=== PATIENT | female | born 1985 | race Caucasian/White ===

== ENCOUNTER 2021-12-08 17:11 | Outpatient (CLI) | payer OTHER, SELFPAY ==
[2021-12-08 20:07] LABS: Cholesterol* 204 mg/dL (90-199)
[2021-12-08 20:08] LABS: Glucose* 94 mg/dL (60-115); HDL Cholesterol* 44 mg/dL (>=50); LDL Cholesterol Calculated 134 mg/dL (<100); Triglycerides* 131 mg/dL (40-149)
== END 2021-12-08 17:12 | disposition home or self-care (01) ==
PROVIDERS: PCP Family Medicine; Visit Provider Physician Assistant
DX: Z01.419 Encounter for gynecological examination (general) (routine) without abnormal findings (principal); R10.9 Unspecified abdominal pain; Z13.6 Encounter for screening for cardiovascular disorders; Z11.3 Encounter for screening for infections with a predominantly sexual mode of transmission; Z13.1 Encounter for screening for diabetes mellitus
CPT/HCPCS: 80061; 82947; 87624; 88175

== ENCOUNTER 2022-12-23 16:48 | Emergency (ER) | payer OTHER, SELFPAY ==
[2022-12-23] VITALS (27 sets, daily range): BP systolic 100–126; BP diastolic 70–92; PULSE 64–95; RESP 18–24; TEMP 36.6–36.7; O2SAT 91–100; BMI 32.9
--- NOTE | 2022-12-23 17:24 | ED.GENADULT ---
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 Day at [facility], last week. The procedure was complicated by DVT that developed in her right lower extremity. This was not apparently diagnosed on ultrasound in the [facility] on Tuesday. Apparently there was a large clot burden or proximal clot involving the right femoral or iliac vein. She was taken for a venogram and thrombectomy on Tuesday. She still has the dressing in place on the right IJ (the site I used for approach). Apparently her clot retrieval was successful. She was discharged home. She is still on her prophylactic Lovenox. She was given oxycodone for pain. She has had a lot of nausea for the past couple of days has not been able to eat or drink much fluid. She is having ongoing pain located in her right groin. Today she also developed new severe pain involving her left calf. This afternoon she developed some pleuritic chest pain. She was brought here after her family called the ambulance. In route per EMS she received Dilaudid 2 mg and fentanyl 100 mcg. She was apparently having tremendous bilateral lower extremity pain, making a double call for them to extricate her from the home. Now that she is here she is feeling nauseous. She is still having some pain in her legs but declined further pain meds. Related Data Home Medications Medication Instructions Recorded Confirmed ondansetron HCl 4 mg tablet 4 mg PO Q6H PRN 02/12/22 12/23/22 rimegepant 75 mg disintegrating 75 mg PO Q OTHER DAY 02/12/22 02/12/22 tablet (Nurtec ODT) tramadol 50 mg tablet 50 mg PO PRN pain 02/12/22 02/12/22 baclofen 5 mg tablet mg PO 12/23/22 cannabis 12/23/22 cephalexin 500 mg capsule 500 mg PO BID 12/23/22 12/23/22 enoxaparin 80 mg/0.8 mL 1 subcut Q12H 12/23/22 subcutaneous syringe hydrocodone 5 mg-acetaminophen 325 1 tab PO Q6-8H PRN pain 12/23/22 12/23/22 mg tablet methocarbamol 750 mg tablet 750 mg PO 3XD PRN pain 12/23/22 12/23/22 pregabalin 25 mg capsule mg PO 12/23/22 Allergies Allergy/AdvReac Type Severity Reaction Status Date / Time codeine Allergy Severe SOB, heart Verified 12/23/22 17:12 races warfarin Allergy Intermediate Trouble Verified 12/23/22 17:12 breathing Ketorolac tromethamine Allergy Intermediate Anxious Uncoded 02/12/22 12:39 [facility] Medical History (Updated 12/23/22 @ 22:04 by Oni Hyman MD) Familial multiple factor deficiency syndrome, type IV ?D68.8 - Other specified coagulation defects (ICD-10) Non-specific colitis ?K52.9 - Noninfective gastroenteritis and colitis, unspecified (ICD-10) History of irritable bowel syndrome ?Z87.19 - Personal history of other diseases of the digestive system (ICD-10) History of gestational hypertension ?Z87.59 - Personal history of other complications of , childbirth and the puerperium (ICD-10) History of deep venous thrombosis (06/28/11) ?Z86.718 - Personal history of other venous thrombosis and embolism (ICD-10) History of colitis ?Z87.19 - Personal history of other diseases of the digestive system (ICD-10) History of abnormal cervical Papanicolaou smear (2010) ?Z87.42 - Personal history of other diseases of the female genital tract (ICD-10) Surgical History Status post wrist surgery (2015) ?Z98.890 - Other specified postprocedural states (ICD-10) History of reversal of tubal ligation (2013) ?Z98.890 - Other specified postprocedural states (ICD-10) History of colposcopy with cervical biopsy (2010) ?Z98.890 - Other specified postprocedural states (ICD-10) History of colonoscopy ?Z98.890 - Other specified postprocedural states (ICD-10) History of 2 sections ?Z98.891 - History of uterine scar from previous surgery (ICD-10) Family History (Updated 11/27/21 @ 13:22 by Kassi Miller) Mother Brain aneurysm, Onset Age: 44 Brother Depression Father Heart disease Substance abuse Maternal Grandfather Lung cancer Paternal Grandfather Myocardial infarction, Onset Age: 60 Family/Other Parkinson disease Substance abuse Tumor Social History (Updated 12/08/21 @ 17:12 by Vickie Epstein PA-C) Narrative: Non-smoker- quit 2004, 2 pack years Single, 2 kids , hair colorist Social drinker- 1/week Smoking Status: Never smoker How often do you have a drink containing alcohol: monthly or less How many standard drinks containing alcohol do you have on a typical day: 3 or 4 AUDIT-C Alcohol total score: 2 Non-prescribed substance use: denies use Exam Narrative: Exam Narrative: Constitutional: Appears well-developed and well-nourished. Alert. Uncomfortable and anxious. Face is plethoric. Conversant. HENT: Head: Atraumatic. Nose: Nose normal. Mouth/Throat: Oral mucosa is clear and moist. no trismus. Pharynx normal. Tonsils symmetric. No tonsillar enlargement, erythema, or exudate. Eyes: Conjunctivae normal. EOM normal. Pupils equal, round, and reactive to light. No scleral icterus. Neck: Normal range of motion. Neck supple. No tracheal deviation present. Cardiovascular: Normal rate, regular rhythm. No gallop. No friction rub. No murmur heard. Symmetric radial artery pulses . Nurses were unable to palpate a pulse but were able to detect DP pulse by Doppler. I am able to palpate pulses. Pulmonary/Chest: Effort normal. No stridor. No respiratory distress. No wheezes. No rales. No rhonchi . No tenderness. Abdominal: Soft. Bowel sounds normal. No distension. No mass. No tenderness. No rebound. No guarding. Musculoskeletal: RUE: Normal range of motion. No tenderness. No deformity LUE: Normal range of motion. No tenderness. No deformity We had to cut the patient's compression pantyhose to perform proper leg exam. RLE: No deformity or signs of bony injury but range of motion in her hip and knee are limited by pain in her right groin. She is tender over the right groin and right medial thigh but compartments are soft. No evidence for compartment syndrome. She has signs of healing incisions on her right calf. 1+ edema. . No deformity LLE: No deformity or signs of bony injury but range of motion in her hip, knee, and ankle are limited by her left calf pain. She is tender over the left calf. 1+ edema. . No deformity Lymph: No cervical adenopathy. Neurological: Alert and oriented to person, place, and time. Normal strength. CN II-VII intact. No sensory deficit. GCS eye subscore is 4. GCS verbal subscore is 5. GCS motor subscore is 6. Normal coordination Skin: Skin is warm and dry. No rash noted. No pallor. Normal capillary refill. Psychiatric: Normal mood. Mildly anxious. Const: Vital Signs, click to edit/add: Vital Signs - 24 hr 12/23/22 16:57 12/23/22 17:17 12/23/22 17:30 Temperature 97.9 F Pulse Rate 74 64 Pulse Rate [Pulse Oximeter] 80 Respiratory Rate 24 Blood Pressure Blood Pressure [Ri ght Upper Arm] 126/82 Pulse Oximetry 99 100 98 Oxygen Delivery Me thod Room Air 12/23/22 17:33 12/23/22 18:00 12/23/22 18:02 Temperature Pulse Rate 67 66 66 Pulse Rate [Pulse Oximeter] Respiratory Rate Blood Pressure 108/72 110/74 Blood Pressure [Ri ght Upper Arm] Pulse Oximetry 93 98 99 Oxygen Delivery Me thod 12/23/22 18:30 12/23/22 18:32 Temperature Pulse Rate 67 Pulse Rate [Pulse Oximeter] Respiratory Rate Blood Pressure 105/72 Blood Pressure [Ri ght Upper Arm] Pulse Oximetry 99 Oxygen Delivery Me thod Documenting provider has reviewed patient's vital signs: yes Course Course Hospital Course: consult with JEFFERY Jenkins from [facility]. He would recommend getting a CT scan PE protocol and bilateral lower extremity ultrasounds. This would be adequate to assess for her clot burden without having a CT PA with a venous runoff. Vital Signs Vital signs: Initial Vital Signs Temperature 97.9 F 12/23/22 16:57 Temperature Source Temporal Artery Scan 12/23/22 16:57 Pulse Rate 80 12/23/22 16:57 Pulse Rhythm Regular 12/23/22 16:57 Pulse Strength 3+ Normal 12/23/22 16:57 Respiratory Rate 24 12/23/22 16:57 Blood Pressure 126/82 12/23/22 16:57 Blood Pressure Mean 96 12/23/22 16:57 Blood Pressure Position Semi-Fowlers 12/23/22 16:57 Pulse Oximetry 99 12/23/22 16:57 Oxygen Delivery Method Room Air 12/23/22 16:57 Vital Signs Temperature 97.9 F 12/23/22 16:57 Pulse Rate 80 12/23/22 16:57 Respiratory Rate 24 12/23/22 16:57 Blood Pressure 126/82 12/23/22 16:57 Pulse Oximetry 99 12/23/22 16:57 Oxygen Delivery Method Room Air 12/23/22 16:57 Temperature 97.9 F 12/23/22 16:57 Pulse Rate 67 12/23/22 18:30 Respiratory Rate 24 12/23/22 16:57 Blood Pressure 105/72 12/23/22 18:32 Pulse Oximetry 99 12/23/22 18:30 Oxygen Delivery Method Room Air 12/23/22 16:57 Medical Decision Making MDM Narrative Medical decision making narrative: 37-year-old female with a history of factor 5 Leiden mutation, with previous DVTs on chronic anticoagulation with Lovenox (not able to tolerate warfarin due to allergy). She just had a prior procedure off for superficial veins in both her lower extremities done by vascular surgery/IR at [facility] last week. This was complicated by development of a right lower extremity DVT so she underwent thrombectomy for that DVT Tuesday gaze on Tuesday. She now presents with ongoing pain in the right lower extremity, newly developing pain in the left calf, and new onset of chest pain this afternoon. She has bilateral lower extremity pain but does have signs of good cap refill and pulsatile arterial flow. No evidence for any acute limb ischemia or phlegmasia cerulea dolens. No evidence for compartment syndrome. No clear sign for infection. With her chest pain concern is for possible also development of PEs. My initial plan for workup would be to do a CT PA with venous runoff on CT scan to check for lower extremity DVTs and for potential clot involving the IVC or iliac arteries. Unfortunately were not able to do that protocol of CT here at [facility]. I consulted with the on-call vascular/higher provider, Dr. Dalal. He recommended that we obtain CT PE and obtain bilateral lower extremity ultrasounds. Fortunately the patient is hemodynamically stable and saturating in the 90s on room air. Ultrasound revealed evidence for a nonocclusive thrombus in the right femoral vein. Unclear if this is a recurrent or acute or worsening clot or if this is simply residual from recent thrombectomy. She also has signs of clot in her right saphenous vein which is probably related to her recent vein procedure where that was embolized. CT scan does show evidence for bilateral pulmonary emboli including segmental and subsegmental PEs in both the right and left lower lobes. Fortunately no evidence for any heart strain on CT or labs or EKG. Blood pressure is stable. Oxygen is in the 90s on room air. This does not represent massive PE requiring thrombolytic administration at this time. Discussed with Dr. Giron again. He does not think the patient needs thrombectomy or procedure. His recommendation would be to start the patient on heparin bolus and drip since she is failing treatment with Lovenox. He would recommend admission and hospital where she can have hematology consultation to figure out a plan for long-term anticoagulation. Unfortunately we are unable to admit her here. We would not have capacity to place IVC filter if that became necessary. We also do not have hematology/oncology consultation to evaluate for her hypercoagulability. Unclear what would be her best anticoagulation regimen since she is having clots breaking through Lovenox therapy. Discuss with [facility]. They were not able to accommodate the patient at their facility due to capacity issues. Also [facility] is on full divert for transfers. Also [facility] is on divert for transfers Discussed with the [place] system. Unfortunately they are not able to accommodate the patient and the other facilities. They placed her on the wait list for allowing a bed. Preliminarily discussed with hospitalist at [facility], Dr. Eng. He is not able to accept the patient due to capacity issues. Discussed with IR, Dr. Sarmiento. He is aware. No need for emergent IR procedure. Discussed with our hospitalist, Dr. Marte. At about 11:00 p.m. I was able to contact hospitalist, Dr. Isabel, hospitalist for [facility]. He was able to accept the patient at [facility]. There will be a 4-8 hour delay before she can be transferred. She will continue on heparin infusion here in the ER. She remains hemodynamically stable. I returned the patient to update her on the disposition. She was feeling nauseous. Still having some pain in her legs. She received another dose of Dilaudid. Additional Zofran ordered. Discussed with my partner, Dr. Dimas who will oversee her care prior to transfer. Lab Data Labs: Lab Results 12/23/22 12/23/22 Range/Units 17:27 Unknown WBC 5.90 Cancelled (4.50-11.00) K/uL RBC 4.23 Cancelled (4.00-5.20) m/uL Hgb 13.5 Cancelled (12.0-16.0) gm/dL Hct 38.5 Cancelled (33.0-51.0) % MCV 91 Cancelled (80-100) fL MCH 32 Cancelled (26-34) pg MCHC 35 Cancelled (32-36) gm/dL RDW Coeff of Mindy 11.6 (11.5-15.5) % Plt Count 263 Cancelled (140-440) K/uL Neut % (Auto) 51.9 (42.0-72.0) % Lymph % (Auto) 39.2 (20-44) % [place] % (Auto) 7.6 (0.0-11.0) % Eos % (Auto) 0.8 (0.0-7.0) % Baso % (Auto) 0.5 (0.0-3.0) % Neut # (Auto) 3.06 (1.7-7.0) K/uL Lymph # (Auto) 2.31 (0.90-2.90) K/uL [place] # (Auto) 0.40 (0.00-0.90) K/UL Eos # (Auto) 0.05 (0.00-0.50) K/uL Baso # (Auto) 0.03 (0.00-0.30) K/uL Abs Immat Gran (auto) 0.00 (0.00-0.30) K/uL Imm/Tot Granulo (auto) 0.0 % INR 1.07 (0.91-1.10) APTT 33 (23-33) Seconds Sodium 136 (135-149) mmol/L Potassium 3.6 (3.6-5.1) mmol/L Chloride 105 (96-114) mmol/L Carbon Dioxide 23 (20-32) mmol/L BUN 9 (5-24) mg/dL Creatinine 0.7 (0.5-1.5) mg/dL Estimated Creat Clear 105.97 Estimated GFR 113 ml/min Glucose 95 (60-115) mg/dL Calcium 9.2 (8.4-10.6) mg/dL Troponin I < 0.01 L (0.01-0.04) ng/mL NT-Pro-B Natriuret Pep 55 pg/mL HCG, Qual Negative (Negative) POC Troponin I 0.00 L (0.01-0.04) ng/ml Imaging Data CT scan - chest: Attestation: I have reviewed the pertinent imaging results. My impression: d/w Dr Ortiz by phone 8:38. + Pulmonary emboli Bilateral. Ultrasound legs: My impression: Discussed with radiologist, Dr. Conde, by phone. The patient has signs of a nonocclusive DVT affecting her right femoral vein and also some occlusive DVT affecting her right saphenous vein. Based on this conversation it is unclear whether not these DVTs are still residual after thrombectomy or these are recurrent or progressing. I subsequently discussed with vascular/IR from [facility], Dr. Giron. He believes that the saphenous vein abnormalities because they embolized that vein during the procedure. Unclear if the partially occlusive thrombus in the femoral vein is acute or chronic. Radiologist's impression: IMPRESSION: Short segment of nonocclusive thrombus in the inferior right femoral vein. Occlusive thrombus in the greater saphenous vein in the right superior and mid thigh. No sign of any additional right deep venous thrombosis. No sign of any deep venous thrombosis on the left. Discharge Plan Discharge Clinical Impression: DVT (deep venous thrombosis), Factor V Leiden mutation, Pulmonary embolism Patient Disposition: Xfer Other Condition: Guarded Prescriptions: No Action ondansetron HCl 4 mg tablet 4 mg PO Q6H PRN tramadol 50 mg tablet 50 mg PO PRN (Reason: pain) Patient Comments: after injections Nurtec ODT 75 mg tablet,disintegrating 75 mg PO Q OTHER DAY Rx Instructions: as a single dose cephalexin 500 mg capsule 500 mg PO BID baclofen 5 mg tablet PO hydrocodone-acetaminophen 5-325 mg tablet 1 tab PO Q6-8H PRN (Reason: pain) methocarbamol 750 mg tablet 750 mg PO 3XD PRN (Reason: pain) enoxaparin 80 mg/0.8 mL syringe 1 subcut Q12H pregabalin 25 mg capsule PO cannabis Stand Alone Forms: MyHealth Info Instructions
--- NOTE | 2022-12-23 17:32 | CRLHL7_ITS ---
For Patients: As a result of the Century Cures Act, medical imaging exams and procedure reports are released immediately into your electronic medical record. You may view this report before your referring provider. If you have questions, please contact your health care provider. INDICATION: Chest pain, recent DVT. Concern for PE. TECHNIQUE: CT chest PE was acquired with 100 cc Omnipaque 350 IV contrast. COMPARISON: None. FINDINGS: Heart and vasculature: Contrast opacification of the pulmonary arterial tree is adequate. Pulmonary emboli identified in the left lower lobe segmental and subsegmental arteries as well as the right lower lobe segmental and subsegmental arteries.. Heart size is normal. No evidence of right heart strain. Thoracic aorta and pulmonary artery are normal in caliber. Lungs and pleura: No suspicious nodules or infiltrates. Mild bibasilar subsegmental atelectasis. No pleural effusions, pleural thickening, or pneumothorax. Lymph nodes/mediastinum: No mediastinal, hilar, or axillary adenopathy. Chest wall: No masses. Upper abdomen: No acute or significant findings. Bones: Unremarkable for age. IMPRESSION: Segmental and subsegmental pulmonary emboli identified in the left greater than right lower lobe pulmonary arteries. Dr. Hyman informed of the findings at 7:37 p.m. on 12/23/[address] Ortiz Please note that all CT scans at this facility use dose modulation, iterative reconstruction, and/or weight-based dosing when appropriate to reduce radiation dose to as low as reasonably achievable. Dictated by Robbie Ortiz MD @ 12/23/2022 8:41:45 PM (Electronically Signed)
[2022-12-23] MEDS: ONDANSETRON 2 MG/ML inj 4 MG IVP ×2 (17:33→23:24)
[2022-12-23] MEDS: SODIUM CHLORIDE IV (17:33)
--- NOTE | 2022-12-23 17:34 | CRLHL7_ITS ---
For Patients: As a result of the Century Cures Act, medical imaging exams and procedure reports are released immediately into your electronic medical record. You may view this report before your referring provider. If you have questions, please contact your health care provider. INDICATION: Status post vein ablation 12/15/2022. DVT diagnosed at an outside facility on 12/21/2022. Bilateral leg pain and swelling. COMPARISON: Ultrasound of the venous drainage of the left lower extremity from 04/24/2021. FINDINGS: Ultrasound of the venous drainage of both lower extremities was performed using real-time benjamin scale imaging (B mode 2D), color flow Doppler and spectral analysis. There is a short segment of nonocclusive thrombus in the inferior right femoral vein which could be either acute or chronic. There is occlusive thrombus in the right greater saphenous vein in the superior and mid thigh. These findings are new compared to the previous ultrasound from 2020 There is no evidence of deep venous thrombosis more distally on the right. There is normal antegrade flow from the posterior tibial and peroneal veins superiorly through the popliteal vein. There is normal augmentation and compressibility of these veins. There is no evidence of deep venous thrombosis on the left. There is normal antegrade flow from the posterior tibial and peroneal veins superiorly through the left common femoral vein. There is normal augmentation and compressibility of these veins. IMPRESSION: Short segment of nonocclusive thrombus in the inferior right femoral vein. Occlusive thrombus in the greater saphenous vein in the right superior and mid thigh. No sign of any additional right deep venous thrombosis. No sign of any deep venous thrombosis on the left. Dictated by Hang Cleary MD @ 12/23/2022 7:25:13 PM (Electronically Signed)
[2022-12-23 17:36] LABS: Basophils Absolute Auto 0.03 K/uL (0.00-0.30); Basophils Percent Auto 0.5 % (0.0-3.0); Eosinophils Absolute Auto 0.05 K/uL (0.00-0.50); Eosinophils Percent Auto 0.8 % (0.0-7.0); Hematocrit 38.5 % (33.0-51.0); Hemoglobin* 13.5 gm/dL (12.0-16.0); Lymphocytes Absolute Auto 2.31 K/uL (0.90-2.90); Lymphocytes Percent Auto 39.2 % (20-44); Mean Corpuscular HGB Conc 35 gm/dL (32-36); Mean Corpuscular Hemoglobin 32 pg (26-34); Mean Corpuscular Volume 91 fL (80-100); Monocytes Percent Auto 7.6 % (0.0-11.0); Neutrophils Absolute Auto 3.06 K/uL (1.7-7.0); Neutrophils Percent Auto 51.9 % (42.0-72.0); Platelet Count* 263 K/uL (140-440); RDW Coefficient of Variation % 11.6 % (11.5-15.5); Red Blood Count 4.23 m/uL (4.00-5.20)
[2022-12-23 17:39] LABS: Slide Review Reflex No
--- OUTSIDE RECORDS SUMMARY | 2022-12-23 17:47 | XMS_ITS | Patient Health Record ---
Author Name Unknown Organization [facility] Address [address] [place] [address] [address] [place] [address] Care Team Providers Care Internist Medical Doctor Md Name Role Phone No Primary, Care Primary Care Provider Unavailab Porfirio Martínez Unavailable [phone] Ariana Arceo Unavailable Unavailable ALLERGIES Allergen (clinical drug ingredient) Drug/Non Drug Allergy documented on EMR Reaction Allergy Type Onset Date Status Cumadin (uncoded) SOB Allergy Ac tive codeine Codeine SOB Drug Allergy Active REASON FOR REFERRAL No Information MEDICATIONS Medication SIG (Take, Route, Fr equency, Duration) Notes Start Date End Date Status Lovenox 150 MG/ML as directed Subcutan eous Once a day Active Lovenox 80 MG/0.8ML as directed Subcutan eous two times daily Active SOCIAL HISTORY Sex Assigned At : Social History Observation Description Sex Assigned At Unknown PROBLEMS Problem Type ICD Code Onset Dates Problem Status W/U Status Risk SNOMED Code Notes Problem Other chronic pain (G89.29) Active confirmed Chronic pain (15083074) Problem Spondylolysis, 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 Acquired spondylolisthesis (061806289) Problem Spondylolisthesis, lumbar region (M43.16) Active confirmed Acquired spondylolisthesis (589965929) Problem Spinal stenosis, cervical region (M48.02) Active confirmed Spinal stenosis in cervical region (59910363) Problem Other cervical disc displacement, unspecified cervical region (M50.20) Active confirmed Displacement of cervical intervertebral disc without myelopathy (72496275) Problem 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) Active confirmed Cervicobrac hial syndrome (53142894) Problem Radiculopathy, cervical region (M54.12) Active confirmed Cervical radiculopathy (76427803) Problem Dorsalgia, unspecified (M54.9) Active confirmed Backache (579542963) Problem Muscle wasting and atrophy, not elsewhere classified, multiple sites (M62.59) Active confirmed Muscle wasting disorder (25063995) Problem Segmental and somatic dysfunction of cervical region (M99.01) Active confirmed Segmental and somatic dysfunction (576173544) Problem Sprain of joints and ligaments of other parts of neck, initial encounter (S13.8XXA) Active confirmed Neck sprain (171453645) Problem Strain of muscle, fascia and tendon at neck level, initial encounter (S16.1XXA) Active confirmed Neck sprain (432834047) Problem Headache, unspecified (R51.9) Active confirmed Headache (14217113) Problem Neck pain (M54.2) Active confirmed Neck pain (49261187) Encounters Encounter Location Date Provider Diagnosis [address] [address] [facility] [address] [place] [id number] 12/30/2021 Porfirio Gonzalez [address] [facility] [address] [place] [id number] 01/19/2022 Porfirio Gonzalez [address] [facility] [address] [place] [id number] 03/12/2022 Porfirio Gonzalez [facility] [address] [place] [address] [address] [place] [phone] 08/17/2022 Porfirio Gonzalez PLAN OF TREATMENT No Information Insurance Providers Payer Name Payer Address Payer Phone Subscriber Number Group Number Insured Name Patient Relationship to Insured Coverage Start Date Coverage End Date [facility] [address] [place] [phone] [id number] Aspen Peng Self - patient is the insured [employer] [address] [place] [address] [phone] [id number] [employer]), Employee MEDICAL (GENERAL) HISTORY Medical History History ICD Code Blood clots Headaches Chiari I malformation Factor V Leiden Surgical History Surgery Date(Month/Year) Right wrist tendon release 2014 Tubal reversal 2012 Hospitalization History Reason Date(Month/Year) Surgical
--- OUTSIDE RECORDS SUMMARY | 2022-12-23 17:47 | XMS_ITS | Continuity of Care Document ---
Author Name Unknown Organization [facility] Address [address] [place] [address] Phone Care Team Providers Care Field Technician Name Role Phone Roberto Saeed MD Unavailable Unavailable Allergies, Adverse Reactions, Alerts Substance Reaction Status Criticality warfarin Unknown Active No Information codeine Unknown Active No Information Medications Medication Instructions Dosage Effective Dates (start - stop) Status Comments LOVENOX (unknown strength) Not Available - Active Procedures Procedure Date Office/Outpatient Visit,Est, Mod 2020 Office/Outpatient Visit,New, Mod 2020 Advance Directives Directive Yes / No Effective Date File Name No Information Encounters Encounter Description Practice Location Reason(s) For Visit Diagnoses Date Provider Providers Copied on Encounter [facility], [address], [place], [id number] , [place] tel: [phone] [facility] No Information 2 Darlin Mejia. [facility] [place], [address] [place] [address], [facility] [address], [place], [id number] , [place]. tel: [phone] Office/Outpat ient Visit,Est, Mod [facility], [address], [place], [id number] , [place] tel: [phone] [facility] [place] Cervical disc disorder with myelopathy, cervicothoracic region 1 Darlin Mejia. [facility] [place], [address], [address], [place], [address] , [place]. tel: [phone] Office/Outpat ient Visit,New, [facility], [address], [place], [address] , [place] tel: [phone] [facility] No Information 1 Darlin Mejia. [facility], [address], [address], [place], [id number] , [place]. tel: [phone] Family History Family Member Type Diagnosis Age At Onset No Information Payers Payer name Insurance type Covered libertarian ID Authorgloria suarez(s) [employer] [id number] [employer] [id number] Social History Type Description Quantity Date Captured Comments Sex Female Smoking Status No Information Chief Complaint And Reason For Visit No Information Reason For Referral Reason For Referral No Information History Of Present Illness Encounter Date Complaint History Of Prese nt Illness No Information Functional Status Date Functional Assessmen t No Information Instructions Date Instruction Additional Infor mation No Information Assessments Type Assessment Date No Information Patient Care Teams Name Effective Dates (start - stop) Status Members No Information
[2022-12-23 17:57] LABS: Chloride* 105 mmol/L (96-114); Sodium* 136 mmol/L (135-149)
[2022-12-23 17:58] LABS: Potassium* 3.6 mmol/L (3.6-5.1)
[2022-12-23 18:00] LABS: Creatinine* 0.7 mg/dL (0.5-1.5); Est. Creatinine Clearance* 105.97; Estimated Glomerular Filt Rate 113 ml/min
[2022-12-23 18:01] LABS: Blood Urea Nitrogen* 9 mg/dL (5-24); Calcium* 9.2 mg/dL (8.4-10.6); Carbon Dioxide* 23 mmol/L (20-32); Glucose* 95 mg/dL (60-115)
[2022-12-23 18:13] LABS: NT Pro B Type NatriureticPept* 55 pg/mL; Troponin I* < 0.01 ng/mL (0.01-0.04)
[2022-12-23 18:18] LABS: HCG Qualitative Serum* Negative (Negative)
[2022-12-23] MEDS: HYDROmorphone 0.5 mg/0.5 ml inj IVP ×2 (20:07→23:13)
[2022-12-23 21:13] LABS: INR 1.07 (0.91-1.10); Prothrombin Time 14.5 Seconds
[2022-12-23 21:14] LABS: Partial Thromboplastin Time* 33 Seconds (23-33)
[2022-12-23] MEDS: HEPARIN 25,000 UNIT/500 ML BAG 30 UNIT IV (21:15)
[2022-12-23] MEDS: HEPARIN 5,000 UNIT/0.5 ML INJ 7600 UNIT IVP (21:17)
[2022-12-24] VITALS: PULSE 73; O2SAT 92
[2022-12-24 00:02] VITALS: BP 103/68; PULSE 70; O2SAT 93
[2022-12-24 00:30] VITALS: PULSE 69; O2SAT 94
[2022-12-24 00:31] VITALS: BP 112/80; PULSE 67; O2SAT 96
[2022-12-24] MEDS: HYDROmorphone 0.5 mg/0.5 ml inj 1 MG IVP (01:15)
--- NOTE | 2022-12-24 01:15 | ED.NURSE ---
EMS left with pt.
== END 2022-12-24 01:19 | disposition other institution (70) ==
PROVIDERS: Emergency Provider Emergency Medicine; PCP Student in an Organized Health Care Education/Training Program
DX: I82.503 Chronic embolism and thrombosis of unspecified deep veins of lower extremity, bilateral (principal); I26.99 Other pulmonary embolism without acute cor pulmonale
CPT/HCPCS: 36415; 71275; 80048; 83880; 84484; 84703; 85025; 85027; 85610; 85730; 93005; 93970; 96374; 96375; 96376; 99284; 99285; J1170; J1644; J2405; J7120; Q9967

== ENCOUNTER 2022-12-24 01:00 | Outpatient (CLI) | payer OTHER, SELFPAY ==
--- OUTSIDE RECORDS SUMMARY | 2022-12-27 10:49 | XMS_ITS | Patient Health Record ---
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 Acquired spondylolisthesis (159183300) Problem Spondylolisthesis, lumbar region (M43.16) Active confirmed Acquired spondylolisthesis (477620947) Problem Spinal stenosis, cervical region (M48.02) Active confirmed Spinal stenosis in cervical region (07223887) Problem Other cervical disc displacement, unspecified cervical region (M50.20) Active confirmed Displacement of cervical intervertebral disc without myelopathy (23564070) Problem 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) Active confirmed Cervicobrac hial syndrome (68648032) Problem Radiculopathy, cervical region (M54.12) Active confirmed Cervical radiculopathy (40865871) Problem Dorsalgia, unspecified (M54.9) Active confirmed Backache (784433313) Problem Muscle wasting and atrophy, not elsewhere classified, multiple sites (M62.59) Active confirmed Muscle wasting disorder (67258105) Problem Segmental and somatic dysfunction of cervical region (M99.01) Active confirmed Segmental and somatic dysfunction (555510048) Problem Sprain of joints and ligaments of other parts of neck, initial encounter (S13.8XXA) Active confirmed Neck sprain (251560104) Problem Strain of muscle, fascia and tendon at neck level, initial encounter (S16.1XXA) Active confirmed Neck sprain (072381466) Problem Headache, unspecified (R51.9) Active confirmed Headache (02363101) Problem Neck pain (M54.2) Active confirmed Neck pain (90556197) Encounters Encounter Location Date Provider Diagnosis [address] [facility] [address] [place] [id number] 12/30/2021 Porfirio Gonzalez [address] [facility] [address] [place] [id number] 01/19/2022 Porfirio Gonzalez [address] [facility] [address] [place] [id number] 03/12/2022 Porfirio Gonzalez [facility] [address] [place] [address] [address] [place] [id number] 08/17/2022 Porfirio Gonzalez [facility]ATMENT No Information Insurance Providers Payer Name Payer Address Payer Phone Subscriber Number Group Number Insured Name Patient Relationship to Insured Coverage Start Date Coverage End Date [facility] [address] [place] [phone] [id number] Aspen Peng Self - patient is the insured [employer] [address] [place] [address] [id number] Michi [employer]), Employee MEDICAL (GENERAL) HISTORY Medical History History ICD Code Blood clots Headaches Chiari I malformation Factor V Leiden Surgical History Surgery Date(Month/Year) Right wrist tendon release 2014 Tubal reversal 2012 Hospitalization History Reason Date(Month/Year) Surgical
== END 2022-12-24 01:01 | disposition home or self-care (01) ==
LOC: AMB 12-27 10:46
PROVIDERS: PCP Student in an Organized Health Care Education/Training Program; Visit Provider Family Medicine
DX: I82.409 Acute embolism and thrombosis of unspecified deep veins of unspecified lower extremity (principal)
CPT/HCPCS: A0425; A0426; A0427

== ENCOUNTER 2023-02-15 08:17 | Outpatient (CLI) | payer OTHER, SELFPAY ==
--- OUTSIDE RECORDS SUMMARY | 2023-02-15 08:20 | XMS_ITS | Continuity of Care Document ---
Author Name Unknown Organization [facility] Address [address] [place] [address] Phone Care Team Providers Care File Drawer Finisher Name Role Phone Roberto Saeed MD Unavailable [...] [facility], [address], [place], [place], [id number] , [place] tel: [phone] [facility] No Information 2 Darlin Mejia. [facility] [place], [address] [place] [address], [facility] [address], [place], [address] , [place]. tel: [phone] Office/Outpat ient Visit,Est, Mod [facility], [address], [place], [id number] , [place] tel: [phone] [facility] [place] Cervical disc disorder with myelopathy, cervicothoracic region 1 Darlin Mejia. [facility] [place], [address], [address], [place] [place], [address] , [place]. tel: [phone] Office/Outpat ient Visit,New, [facility] [place] [facility], [address], [place], [address] , [place] tel: [phone] [facility] No Information 1 Darlin Mejia. [facility], [address], [address], [place], [id number] , [place]. tel: [phone] Family History Family Member Type Diagnosis Age At Onset No Information Payers Payer name Insurance type Covered libertarian ID Authorgloria suarez(s) [employer] [id number] [employer] [id number] Social History Type Description Quantity Date Captured [...]
== END 2023-02-15 08:18 | disposition home or self-care (01) ==
PROVIDERS: PCP Student in an Organized Health Care Education/Training Program; Visit Provider Physician Assistant
DX: R68.82 Decreased libido (principal); Z11.3 Encounter for screening for infections with a predominantly sexual mode of transmission
CPT/HCPCS: 86592; 86703; 86803; 87340; 87491; 87591

== ENCOUNTER 2024-01-18 20:23 | Outpatient (CLI) | payer MEDICAID, SELFPAY ==
--- OUTSIDE RECORDS SUMMARY | 2024-01-18 20:29 | XMS_ITS | Patient Health Record ---
Author Organization [facility] Address [address] [place] [address] [address] [place] [address] Care Team Providers Care City Marshal Name Role Phone No Primary, Care Primary Care Provider Unavailab Porfirio Martínez Unavailable [phone] PasekaAriana Unavailable Unavailable Allergies Allergen (clinical drug ingredient) Drug/Non Drug Allergy documented on EMR Reaction Allergy Type Onset Date Status Cumadin (uncoded) SOB Allergy Ac tive codeine Codeine SOB Drug Allergy Active Reason For Referral No Information Medications Medication SIG (Take, Route, Fr equency, Duration) Notes Start Date End Date Status Lovenox 150 MG/ML as directed Subcutan eous Once a day Active Lovenox 80 MG/0.8ML as directed Subcutan eous two times daily Active Problems Problem Type SNOMED Code ICD Code Onset Dates Problem Status W/U Status Risk Notes Problem Chronic pain (06264127) Other chronic pain (G89.29) Active confirmed Problem Acquired spondylolisthesis (050167210) Spondylolysis, 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 Problem Acquired spondylolisthesis (586129297) Spondylolisthesis , lumbar region (M43.16) Active confirmed Problem Spinal stenosis in cervical region (82412756) Spinal stenosis, cervical region (M48.02) Active confirmed Problem Displacement of cervical intervertebral disc without myelopathy (04487315) Other cervical disc displacement, unspecified cervical region (M50.20) Active confirmed Problem Cervicobrachial syndrome (92522360) 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) Active confirmed Problem Cervical radiculopathy (91963674) Radiculopathy, cervical region (M54.12) Active confirmed Problem Backache (715286300) Dorsalgia, unspecified (M54.9) Active confirmed Problem Muscle wasting disorder (21758527) Muscle wasting and atrophy, not elsewhere classified, multiple sites (M62.59) Active confirmed Problem Segmental and somatic dysfunction (509155465) Segmental and somatic dysfunction of cervical region (M99.01) Active confirmed Problem Neck sprain (141138280) Sprain of joints and ligaments of other parts of neck, initial encounter (S13.8XXA) Active confirmed Problem Neck sprain (908730914) Strain of muscle, fascia and tendon at neck level, initial encounter (S16.1XXA) Active confirmed Problem Headache (32738319) Headache, unspecified (R51.9) Active confirmed Problem Neck pain (71445139) Neck pain (M54.2) Active c onfirmed Plan Of Treatment No Information Insurance Providers Payer Name Payer Address Payer Phone Subscriber Number Group Number Insured Name Patient Relationship to Insured Coverage Start Date Coverage End Date [facility] [address] [place] [address] [id number] Aspen Peng Self - patient [facility] the insured [facility] [address] [place] [phone] [id number] Michi [employer]), Employee Medical (General) History Medical History History ICD Code Blood clots Headaches Chiari I malformation Factor V Leiden Surgical History Surgery Date(Month/Year) Tubal reversal 2012 Right wrist tendon release 2014 Hospitalization History Reason Date(Month/Year) Surgical
--- OUTSIDE RECORDS SUMMARY | 2024-01-18 20:29 | XMS_ITS | Encounter Summary ---
Author Organization [facility] Address [address] [address] Care Team Providers Care Area Plant Manager Name Role Phone Unavailable Primary Care Provider Unavailabl e Reason for Visit * Reason Comments Sore Throat Encounter Details Date Type Department Care Team ([facility] st Contact Info) Description 10/13/2023 1:20 PM CDT Office Visit [facility] [address] [place] [address] Kika Adam MD [address] [place] [address] Pharyngitis, unspecified etiology; Thrush; Acute tonsillitis, unspecified etiology Social History Tobacco Use Types Packs/Day Years Used Date Smoking Tobacco: Never Smokeless Tobacco: Never Sex and Gender Information Value Date Recorded Sex Assigned at Not on file Gender Identity Not on file Sexual Orientation Not on file documented as of this encounter Last Filed Vital Signs Vital Sign Reading Time Taken Comments Blood Pressure 112/76 10/13/2023 1:06 PM CDT Pulse 59 10/13/2023 1:06 PM CDT Temperature 36.7 ??C (98 ??F) 10/13/2023 1:06 PM CDT Respiratory Rate 16 10/13/2023 1:06 PM CDT Oxygen Saturation 98% 10/13/2023 1:06 PM CDT Inhaled Oxygen Concentration - - Weight - - Height - - Body Mass Index - - documented in this encounter Patient Instructions * Patient Instructions* Kika Adam MD - 10/13/2023 1:20 PM CDT If not improving you will need to be seen again, sooner if getting worse. * Attachments The following attachments cannot be sent through Care Everywhere. * Tonsillitis (Barbadian) * Candidiasis (Barbadian) documented in this encounter Progress Notes * Kika Adam MD - 10/13/2023 1:20 PM CDT [facility] Nursing Notes: Ana Rosa Stone, RN 10/13/23 1308 Signed Patient reports sore throat x2 weeks, was evaluated 10/04 in urgent care, negative strep. Magic mouthwash was prescribed, only helps for a few minutes after use. Continues to have sore throat, throat pain has worsened. Over the past few days tongue has become raw and she has developed a cough at night. Has continued to have low grade fever 100F. Patient: Aspen Peng Date of : 1985 (38 y.o.) Subjective Chief Complaint: Chief Complaint Patient presents with Sore Throat History of Present Illness: Aspen Peng is a 38 y.o.female who presents with sore throat for the last 2 weeks. Assoc symptoms include: fever and now her tongue feels raw. Strep test was negative two weeks ago. Hx of thrush a lot in the past. has not been exposed to strep. has not been exposed to mono. Objective Physical Exam: Vital Signs: BP 112/76 (BP Location: Left Arm, BP Cuff Size: Regular - Long) Pulse (!) 59 Temp 36.7 ??C (98 ??F) (Oral) Resp 16 LMP 09/24/2023 SpO2 98% NAD General: Patient does not appear acutely ill. Skin: Mucous membranes are moist. No sign of obvious dehydration. Pharynx: mild erythema and perhaps some tonsillar exudate on the right, tongue does look like it has a white coat Neck: no adenopathy Respiratory: Normal respiratory effort. Lungs are clear with good breath sounds. Heart: RR without murmurs, rubs, or gallops. Laboratory Testing: Results for orders placed or performed in visit on 10/13/23 RUT Prep Result Value Ref Range Fungal Elements Not Detected Not detected Interventions: Orders Placed This Encounter [place] Test RUT Prep clindamycin (CLEOCIN) 300 MG capsule fluconazole (DIFLUCAN) 100 MG tablet Assessment MDM: will treat for thrush even though the RUT came back negative because it looks like, it, she has tongue pain and hx of thrush. Will cover for non-strep tonsillitis with clindamycin also. Impression: 1. Pharyngitis, unspecified etiology 2. Thrush 3. Acute tonsillitis, unspecified etiology Plan Patient Discharge Medications & Instructions: Medications Prescribed this Visit Disp Refills Start End clindamycin (CLEOCIN) 300 MG capsule 40 Capsule 0 10/13/2023 10/23/2023 Take 1 Capsule (300 mg) by mouth 4 times a day for 10 days. Oral fluconazole (DIFLUCAN) 100 MG tablet 15 Tablet 0 10/13/2023 10/27/2023 Take 2 Tablets (200 mg) by mouth daily for 1 day, THEN 1 Tablet (100 mg) daily for 13 days. Oral Patient Instructions If not improving you will need to be seen again, sooner if getting worse. Kika Adam MD documented in this encounter Nursing Notes * Ana Rosa Stone, RN - 10/13/2023 1:20 PM CDT Patient reports sore throat x2 weeks, was evaluated 10/04 in urgent care, negative strep. Magic mouthwash was prescribed, only helps for a few minutes after use. Continues to have sore throat, throat pain has worsened. Over the past few days tongue has become raw and she has developed a cough at night. Has continued to have low grade fever 100F. documented in this encounter Plan of Treatment Not on file documented as of this encounter Procedures Procedure Name Priority Date/Time Associated Diagnosis Comments RUT PREP STAT 10/13/2023 1:20 PM CDT Pharyngitis, unspecified etiology documented in this encounter Results * [place] Test (10/13/2023 1:36 PM CDT) Mononucleosis Screen Negative Negative 10/13/2023 1:57 PM CDT [facility] Blood Venipuncture / Unknown 10/13/2023 1:36 PM CDT 10/13/2023 1:37 PM CDT Kika Adam MD LAB_1 Performing Organization Address [facility] de Phone Number [facility] [address] [place] [address] * RUT Prep (10/13/2023 1:20 PM CDT) Fungal Elements Not Detected Not detected 10/13/2023 1:39 PM CDT [facility] Swab (Source Required) TONGUE STRUCTURE / Unknown Non-blood Collection / Unknown 10/13/2023 1:20 PM CDT 10/13/2023 1:25 PM CDT Kika Adam MD LAB_1 Performing Organization Address [facility] de Phone Number [facility] [address] [place] [address] documented in this encounter Visit Diagnoses Diagnosis Pharyngitis, unspecified etiology Thrush Candidiasis of mouth Acute tonsillitis, unspecified etiology documented in this encounter
--- OUTSIDE RECORDS SUMMARY | 2024-01-18 20:29 | XMS_ITS | Referral Summary ---
Author Organization [facility] Address [address] [place] [address] Care Team Providers Care Shale Planer Operator Helper Name Role Phone Unknown, Primary Care Provider Unavailabl e Allergies Active Allergy Reactions Criticality Noted Date Comments Codeine Difficulty breathing,Palpitations,Un known 10/31/2006 Ketorolac Anxiety 07/05/2021 Warfarin Difficulty breathing,Palpitations,Un known 10/25/2007 Unknown reaction - 12 years ago Medications Medication Sig Dispensed Refills Start Date End Date Status enoxaparin (LOVENOX) 80 mg/0.8 mL SubQ injection Inject 0.8 mL (80 mg) under the skin twice a day. Or 150 once daily Active Pregabalin (LYRICA) 150 mg oral capsule Take 1 capsule (150 mg) by mouth Daily. At night 01/26/2022 Active pregabalin (LYRICA) 75 mg oral capsule Take 1 capsule (75 mg) by mouth. Active baclofen (LIORESAL) 10 mg oral tablet Take 5 mg by mouth. Active cephalexin (KEFLEX) 500 mg oral capsule Take 1 capsule (500 mg) by mouth Twice a Day. Last dose was this morning 12/15/2022 Active HYDROcodone-acetamino phen (NORCO) 5-325 mg oral tablet TAKE 1 TABLET BY MOUTH EVERY 6 TO 8 HOURS NEEDED FOR PAIN 12/15/2022 Active ondansetron (ZOFRAN) 4 mg oral ODT 07/05/2021 Active methocarbamoL (ROBAXIN) 500 mg oral tablet Take 1 tablet (500 mg) by mouth every 6 (six) hours as needed. Active oxyCODONE, immediate release, (ROXICODONE) 5 mg oral tablet Take 1 tablet (5 mg) by mouth every 6 (six) hours as needed. Active oxyCODONE, immediate release, (ROXICODONE) 5 mg oral tablet Take 1-2 tablets (5-10 mg) by mouth every 8 (eight) hours as needed. 10 tablet 12/21/2022 Active Social History Tobacco Use Types Packs/Day Years Used Date Smoking Tobacco: Never Smokeless Tobacco: Never Tobacco Cessation:Counseling Given: Not Answered Alcohol Use Standard Drinks/Week Comments Yes 0 (1 standard drink = 0.6 oz pur e alcohol) rarely Sex and Gender Information Value Date Recorded Sex Assigned at Not on file Gender Identity Not on file Sexual Orientation Not on file Last Filed Vital Signs Vital Sign Reading Time Taken Comments Blood Pressure 100/65 12/21/2022 5:30 PM CDT Pulse 59 12/21/2022 5:30 PM CDT Temperature 36.5 ??C (97.7 ??F) 12/21/2022 11:48 AM C DT Respiratory Rate 16 12/21/2022 5:30 PM CDT Oxygen Saturation 98% 12/21/2022 5:30 PM CDT Inhaled Oxygen Concentration - - Weight 95.3 kg (210 lb) 12/21/2022 11:52 AM CDT Height 170.2 cm (5' 7) 12/21/2022 11:52 AM CDT Body Mass Index 32.89 12/21/2022 11:52 AM CDT Plan of Treatment Not on file Care Teams Shale Planer Operator Helper Relationship Specialty Start Date End Date Unknown, NO ADDRESS/PHONE/FAX AFFILIATED PCP - General 12/21/22
--- OUTSIDE RECORDS SUMMARY | 2024-01-18 20:29 | XMS_ITS ---
Author Organization [facility] Address [address] [place] [address] Care Team Providers Care Table Cut Off Saw Operator Name Role Phone Unavailable Unavailable Unavailable Surgery Details Not on file Complications Check Surgery Details section. Procedure Estimated Blood Loss Check Surgery Details section. Procedure Findings Check Surgery Details section. Procedure Specimens Taken Check Surgery Details section.
--- OUTSIDE RECORDS SUMMARY | 2024-01-18 20:29 | XMS_ITS | Clinical Summary ---
Author Organization [facility] Address [address] [place] [address] Care Team Providers Care Acute Care Surgeon Name Role Phone Fabrizio Dalal OD Unavailable [phone] Allergies Active Allergy Reactions Criticality Noted Date Comments Codeine 11/26/2021 Warfarin 11/26/2021 Medications Medication Sig Dispensed Refills Start Date End Date Status pregabalin (LYRICA) 75 MG capsule Take 75 mg by mouth 3 times daily Active Family History Medical History Relation Comments Hypertension Father Aneurysm Mother Hypertension Mother Relation Status Comments Father Mother Social History Tobacco Use Types Packs/Day Years Used Date Smoking Tobacco: Never Assessed Adolescent Education Answer Date Record ed Getting School Help Needed Not on file 02/13 Sex and Gender Information Value Date Recorded Sex Assigned at Female 11/26/2021 7:32 AM CDT Gender Identity Female 11/26/2021 7:32 AM CDT Sexual Orientation Not on file Plan of Treatment Health Maintenance Due Date Last Done Comments ADVANCE CARE PLANNING 1985 ANNUAL REVIEW OF HM ORDERS 1984 YEARLY PREVENTIVE VISIT 1984 HIV SCREENING 1999 HEPATITIS C SCREENING 2002 PAP 2005 GLUCOSE 01/09/2014 01/09/2011, 12/15, 01/07/2011, Additional history exists COVID-19 Vaccine ( season) 2023 PHQ-2 (once per calendar year) 2023 DTAP/TDAP/TD IMMUNIZATION (3 - Td or Tdap) 11/15/2023 11/14/2013, 12/20/1996 INFLUENZA VACCINE (#1) 2024 6, 03/18/2015, 03/06/2014, Additional history exists HEPATITIS B IMMUNIZATION Completed 000, 07/01/1999, 05/29/1999 HPV IMMUNIZATION Aged Out No longer e ligible based on patient's age to complete this topic MENINGITIS IMMUNIZATION Aged Out No l onger eligible based on patient's age to complete this topic Pneumococcal Vaccine: Pediatrics (0 to 5 Years) and At-Risk Patients (6 to 64 Years) Aged Out No longer eligible based on patient's age to complete this topic RSV MONOCLONAL ANTIBODY Aged Out No l onger eligible based on patient's age to complete this topic Procedures Procedure Name Priority Date/Time Associated Diagnosis Comments BASIC METABOLIC PANEL Routine 01/09/2011 5:50 AM CDT from Last 3 Months or Most Recently Relevant to Health Maintenance Results * (ABNORMAL) Basic metabolic panel (01/09/2011 5:50 AM CDT) Sodium 137 133 - 144 mmol/L [facility] Potassium 4.0 3.4 - 5.3 mmol/L [facility] Chloride 110(H) 94 - 109 mmol/L [facility] Carbon Dioxide 21 20 - 32 mmol/L [facility] Anion Gap 5(L) 6 - 17 mmol/L [facility] Glucose 83 60 - 99 mg/dL [facility] Urea Nitrogen 4(L) 5 - 24 mg/dL [facility] Creatinine 0.50(L) 0.52 - 1.04 mg/dL [facility] GFR Estimate >90 >60 mL/min/1.7 m2 [facility] GFR Estimate If Black >90 >60 mL/min/1.7 m2 [facility] Calcium 8.1(L) 8.5 - 10.4 mg/dL [facility] 01/09/2011 5:50 AM CDT 01/09/2011 6:01 AM CDT Jose Luis Moreno MD LAB - BLOOD ORDERAB LES [facility] from Last 3 Months or Most Recently Relevant to Health Maintenance Care Teams Acute Care Surgeon Relationship Specialty Start Date End Date Fabrizio Dalal, OD [address] [place] [address] Optometry 08/14/21
--- OUTSIDE RECORDS SUMMARY | 2024-01-18 20:29 | XMS_ITS | Continuity of Care Document ---
Author Organization [facility] Address [address] [place] [address] Phone Care Team Providers Care Toe Former [employer] Name Role Phone Roberto Saeed MD Unavailable [...] on Encounter [facility], [address], [place], [place], [id number] , [place] tel: [phone] [facility] No Information 2 Darlin Mejia. [facility] [place], [address] [place] [address], [address], [place], [place], [id number] , [place]. tel: [phone] Office/Outpat ient Visit,Est, Mod [facility], [address], [place], [place], [id number] , [place] tel: [phone] [facility] Cervical disc disorder with myelopathy, cervicothoracic region 1 Darlin Mejia. [facility] [place], [address], [address], [place], [place], [id number] , [place]. tel: [phone] Office/Outpat ient Visit,New, [facility], [address], [place], [place], [id number] , [place] tel: [phone] [facility] No Information 1 Darlin Mejia. [facility], [address], [address], [facility] [place] [place], [id number] , [place]. tel: [phone] Family History Family Member Type Diagnosis Age At Onset No Information Payers Payer name Insurance type Covered alliance party ID Authorgloria suarez(s) [employer] [id number] [employer] [id number] Social History Type Description Quantity Date Captured [...]
--- OUTSIDE RECORDS SUMMARY | 2024-01-18 20:29 | XMS_ITS | Clinical Summary ---
Author Organization [facility] Address [address] [place] [address] Care Team Providers Care Promotions Representative Name Role Phone Elsewhere, Pcp Primary Care Provider Unavailabl e Source Comments Patient records contain information from all sites at [facility]. For routine questions regarding patient records, call [phone] during business hours, M-F 8:00 AM - 5:00 PM Central Time. Record requests for emergency care only can be directed to [phone] at any time.[facility] Allergies Active Allergy Reactions Criticality Noted Date Comments Codeine Palpitations 10/31/2006 Ketorolac Anxiety 07/05/2021 Warfarin Shortness of breath (Reselect Reaction) 11/22/2020 Medications Medication Sig Dispensed Refills Start Date End Date Status pregabalin (LYRICA) 150 mg capsule Take 150 mg by mouth at bedtime. Can also take up to 75 mg twice daily as needed Active baclofen (LIORESAL) 10 mg tablet Take 5 mg by mouth 3 (three) times a day. 2 tabs at night and one tablet twice daily Active UNABLE TO FIND Medical cannibas 4.75 mg THC, 0.25 mg CBD, may take up to 8tablets/day Active sennosides (SENOKOT) 8.6 mg tablet Take 8.6 mg by mouth 2 (two) times a day. Active polyethylene glycol (MIRALAX) 17 gram powder packet Take 17 g by mouth daily. Dissolve each 17 g dose in 240 mLs (8 ounces) of beverage. Active enoxaparin (LOVENOX) 150 mg/mL injection Inject 150 mg under the skin daily. States if more active can take 80 mg in am and pm Active methocarbamoL (ROBAXIN) 750 mg tablet Take 750 mg by mouth 3 (three) times a day as needed for muscle spasms. Active Active Problems Problem Noted Date Diagnosed Date Weakness Arm Left 11/22/2020 Social History Tobacco Use Types Packs/Day Years Used Date Smoking Tobacco: Former Smokeless Tobacco: Never Tobacco Cessation:Counseling Given: Not Answered Alcohol Use Standard Drinks/Week Comments Not Currently 0 (1 standard drink = 0.6 oz pur e alcohol) occasionally Nutrition Answer Date Recorded Nutrition: EVOO Fat Source Unknown 09/15 Nutrition: Servings of Fruits/Vegetables per Day Not on file 09/15/2020 Dental Answer Date Recorded Dental: Regular Dentist Unknown 09/16/19 21 Sex and Gender Information Value Date Recorded Sex Assigned at Not on file Gender Identity Not on file Sexual Orientation Not on file Last Filed Vital Signs Vital Sign Reading Time Taken Comments Blood Pressure 118/83 07/07/2023 9:30 PM SECURITY INCIDENT RESPONSE SPECIALIST Pulse 67 07/07/2023 11:00 PM SECURITY INCIDENT RESPONSE SPECIALIST Temperature 36.6 ??C (97.9 ??F) 10/28/2022 4:20 PM CD T Respiratory Rate 18 10/28/2022 6:00 PM CDT Oxygen Saturation 98% 07/07/2023 11:00 PM SECURITY INCIDENT RESPONSE SPECIALIST Inhaled Oxygen Concentration - - Weight 97 kg (213 lb 13.5 oz) 07/07/2023 9:20 PM SECURITY INCIDENT RESPONSE SPECIALIST Height 170.2 cm (5' 7.01) 07/07/2023 9:20 PM CS T Body Mass Index 33.49 07/07/2023 9:20 PM SECURITY INCIDENT RESPONSE SPECIALIST Plan of Treatment Health Maintenance Due Date Last Done Comments Cervical Cancer Screening 1984 HIV Screening 1984 Hepatitis C Screening 1984 Depression Screening (Annual PHQ-2) 05/16/2023 DTaP,Tdap,and Td Vaccines (3 - Td or Tdap) 11/15/2023 11/14/2013, 12/20/1996 COVID-19 Vaccine ( - season) 2024 Influenza Vaccine (#1) 2024 6, 03/18/2015, 03/06/2014, Additional history exists Lipid (Cholesterol) Screening 11/22/2025 11/22/2020 Hepatitis B Vaccines Completed 12/01/1999, 07/01/1999, 05/29/1999 HPV Vaccines Aged Out No longer eligi ble based on patient's age to complete this topic Pneumococcal vaccine (0-64 years) Aged Out No longer eligible based on patient's age to complete this topic Procedures Procedure Name Priority Date/Time Associated Diagnosis Comments LIPID PANEL, S Routine 11/22/2020 5:00 PM CDT from Last 3 Months or Most Recently Relevant to Health Maintenance Results * (ABNORMAL) Lipid Panel (11/22/2020 5:00 PM CDT) Cholesterol, Total 208(H) mg/dL 2020 5:37 PM CDT [facility] Comment: ----REFERENCE VALUE---- Desirable: < 200 Borderline high: 200 - 239 High: > or = 240 Triglycerides 64 mg/dL 11/22/2020 5:37 PM CDT [facility] Comment: ----REFERENCE VALUE---- Normal: <150 Borderline high: 150-199 High: 200-499 Very high: > or =500 Cholesterol, HDL 54 >=50 mg/dL 11/23/19 5:37 PM CDT [facility] Calculated LDL 141(H) mg/dL 11/22/2020 5:37 PM CDT [facility] Comment: ----REFERENCE VALUE---- Desirable: <100 Above Desirable: 100-129 Borderline high: 130-159 High: 160-189 Very high: > or =190 Cholesterol, Non-HDL, Calculated 154 mg/dL 11/22/2020 5:37 PM CDT [facility] Comment: ----REFERENCE VALUE---- Desirable: <130 Above Desirable: 130-159 Borderline high: 160-189 High: 190-219 Very high: > or =220 Blood (Blood, Venous) 11/22/2020 5:00 PM CDT 11/22/2020 5:07 PM CDT Julian Harris M.D. LAB BLOOD ADD-ON [facility] [address] [place] [address], [facility] [place] [address] from Last 3 Months or Most Recently Relevant to Health Maintenance Advance Directives For more information, please contact: [phone] * Full Code (Latest Code Status on File) Date Activated Date Inactivated Comments 11/22/2020 3:40 PM 11/23/2020 1:54 AM Question Answer Comments Full Code: Discussed Care Teams Promotions Representative Relationship Specialty Start Date End Date Elsewhere, Pcp PCP - General Family Medicine 10/23/20
--- OUTSIDE RECORDS SUMMARY | 2024-01-18 20:29 | XMS_ITS | Clinical Summary ---
Author Organization [facility] Address [place], [place] [address] Care Team Providers Care Wood Milling Machine Operator Name Role Phone Jennie Paul DO Primary Care Provider [phone] Allergies Active Allergy Reactions Criticality Noted Date Comments Codeine Tachycardia,Shortnes s Of Breath 10/31/2006 Warfarin Tachycardia 10/25/2007 Unknown reaction - 12 years ago Ketorolac Anxiety 07/05/2021 Medications Medication Sig Dispensed Refills Start Date End Date Status baclofen (LIORESAL) 10 mg tablet Take 10 mg by mouth at bedtime. Active ondansetron (ZOFRAN ODT) 4 mg disintegrating tabletIndications:Na usea and vomiting, unspecified vomiting type Place 2 Tablets (8 mg) on the tongue every 8 hours if needed for Nausea/Vomiting. 10 Tablet 12/24/2022 Active pregabalin (LYRICA) 150 mg capsule Take 150 mg by mouth once daily. Active enoxaparin (LOVENOX) 100 mg/mL injectionIndications :Factor V Leiden mutation (HC),Recurrent deep vein thrombosis (DVT) (HC) Inject 90 mg subcutaneous every 12 hours. 162 mL 11/18/2023 Active enoxaparin (LOVENOX) 150 mg/mL injectionIndications :Factor V Leiden mutation (HC) INJECT 150 MG SUBCUTANEOUS ONCE DAILY 90 mL 3 11/28/2023 Active MELATONIN ORAL Take 20 mg by mouth. 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 08/25/2011 Overview: Uses hydrocodone for leg pain secondary to the edema from her deep vein thrombosis. Also lots of musculoskeletal pains. Has been stable on 240 a month. Trying to decrease, Jory Blake M.D. 03/18/2015 8:34 PM Screening and evaluation for female sterilizatio n 07/09/2011 Overview: Medicaid papers signed 06/04/11 Previous section 07/09/2011 Overview: Desires repeat section with BTL Chest pain, unspecified 07/08/2011 Maternal DVT (deep vein thrombosis), history of 07/08/2011 Overview: Left lower extremity (calf) Pyelonephritis complicating 07/08/2011 Overview: May 2011 Left C5-6 Disk Injury 04/20/2010 Back injury 10/17/2009 Migraine, unspecified, witho ut mention of intractable migraine without mention of status migrainosus 08/19/2009 Pain in joint, lower leg 01/23/2009 Arnold-Chiari malformation 08/21/2008 Factor V Leiden Mutation- Heterozygous 8 Unspecified adjustment reaction 03/08/2007 Acute embolism and thrombosi s of deep vein of left lower extremity 11/15/2006 Resolved Problems Problem Noted Date Diagnosed Date Resolved Date Papanicolaou smear of cervix with atypical squamous cells cannot exclude high grade squamous intraepithelial lesion (ASC-H) 12/08/2010 04/04/2015 PAP SMEAR OF CERVIX W LGSIL 07/25/2007 04/04/2015 Encounters Date Type Department Care Team Description 01/10/2024 10:45 AM CDT Telemedicine [facility] [address] [place] [address] Freya Stringer, CHIP PERSON Sleep Consult; Telehealth (no vitals taken/) 11/23/2023 Refill [facility] [address] [place] [address] Jennie Paul, Refill Request (Enoxaparin) 11/16/2023 Refill [facility] [address] [place] [address] Jennie Paul, Refill Request (Enoxaparin) 10/27/2023 11:00 AM CDT Office Visit [facility] [address] [place] [address] Jennie Paul, Medication Management; Concerns (Had a miscarriage x2 weeks ago, worries cortisol levels might abnormal - was having LEFT sided swelling and pain near ovary area - did an US and couldn't visualize the ovary ) 10/27/2023 Travel from Last 3 Months Immunizations Name Administration Dates Next Due AMB Influenza, IIV4 PF (=>6 mos Flulaval,Fluzone Fluarix)(Flu Clinic Only) 03/06/2014 Hepatitis B (Adult) 12/01/1999,07/01/1999,1999 Influenza, IIV3 (Age 6-35 mos) 03/04/2011 Influenza, IIV3 (Age >=3 years) 06/20/19 14,04/02/2010,01/29/2009, 007,03/01/2005 Influenza, IIV4 03/18/2015 Influenza,CCIIV4 PRESERV FREE 04/21/2016 MMR 12/20/1996 Td (Age >=7 Years) 12/20/1996 Tdap 11/14/2013 Varicella Vaccine 12/20/1996 Family History Medical History Relation Name Comments Other Maternal Grandfather lung ca ncer Other Mother ruptured cerebr al aneurysm Stroke Mother Cancer-prostate Paternal Grandfather Relation Name Status Comments Maternal Grandfather Alive Mother Alive Paternal Grandfather Social History Tobacco Use Types Packs/Day Years Used Date Smoking Tobacco: Former Cigarettes Q uit: 05/16/2004 Smokeless Tobacco: Never Tobacco Cessation:Counseling Given: Yes Comments:quit at 19 years old Alcohol Use Standard Drinks/Week Comments Yes 1 (1 standard drink = 0.6 oz pur e alcohol) rarly PHQ-2 Answer Date Recorded PHQ-2 TOTAL SCORE 0 10/27/2023 Social Connections Answer Date Recorded Frequency of Communication with Friends and Fami ly 0 08/01/2023 Financial Resource Strain Answer Date R ecorded Difficulty of Paying Living Expenses 3 08/01/2023 Difficulty of Paying Living Expenses Not on file 08/01/2023 Food Insecurity Answer Date Recorded Worried About Running Out of Food in the Last Ye ar 1 08/01/2023 Transportation Needs Answer Date Record ed Lack of Transportation (Medical) 1 08/01/2023 Housing Stability Answer Date Recorded Unable to Pay for Housing in the Last Year 1 08/01/2023 Sex and Gender Information Value Date Recorded Sex Assigned at Not on file Gender Identity Not on file Sexual Orientation Not on file Obstetrics History Para Term AB IAB SAB Ectopic Multiple Livin g Live Births 2 2 0 0 0 0 0 0 0 2 Date Outcome GA Total Labor Labor/2nd/3rd Weight Sex Type Anes PTL Vanesa A1 A5 Name Clin 6 Para M C-Sec tion Comments:shoulder dyst ocia 2 Para 2.69 kg (5 lb 15 oz) C-Sec tion Last Filed Vital Signs Vital Sign Reading Time Taken Comments Blood Pressure 118/86 10/27/2023 11:15 AM CDT Pulse 86 10/27/2023 11:15 AM CDT Temperature 36.7 ??C (98.1 ??F) 04/21/2023 1:50 PM CS T Respiratory Rate 18 04/21/2023 1:50 PM OCCUPATIONAL NURSE Oxygen Saturation 98% 10/27/2023 11: 15 AM CDT Inhaled Oxygen Concentration - - Weight 94.3 kg (207 lb 14.4 oz) 024 11:15 AM CDT Height 170.2 cm (5' 7) 10/27/2023 11:1 5 AM CDT Body Mass Index 32.56 10/27/2023 11:15 AM CDT Plan of Treatment Upcoming Encounters Date Type Department Care Team (Late st Contact Info) Description 03/15/2024 7:25 AM CDT Telemedicine [facility] [address] [place] [phone] Freya Stringer, CHIP PERSON [address] [place] [address] Health Maintenance Due Date Last Done Comments Hepatitis C screening for age 18-79 2002 COVID-19 vaccine series (2022- season) 2023 Tetanus booster 11/15/2023 11/14/2013, 11/14 (Completed outside of [facility]), 12/20/1996 Influenza for age 9-49 01/15/2024 6, 03/18/2015, 03/06/2014, Additional history exists BMI (ht and wt on same day) for age 18+ 10/26/2024 10/27/2023, 12/13/2022, 02/02/2022, Additional history exists Depression screening for age 12+ 10/26/2024 10/27/2023, 05/04/2021, 05/22/2015, Additional history exists Pap test for age 21-65 12/08/2024 , 12/08/2021, 05/25/2017, Additional history exists HIV for age 15-65 Completed 08/07/2007 Tdap Completed 11/14/2013 Pneumococcal series for age 6-64 Aged Out No longer eligible based on patient's age to complete this topic Procedures Procedure Name Priority Date/Time Associated Diagnosis Comments CBC WITH AUTO DIFFERENTIAL Routine 10/27/2023 12:02 PM CDT Fatigue, unspecified type TESTOSTERONE,TOTAL Routine 10/27/2023 12 :02 PM CDT Fatigue, unspecified type CBC WITH AUTO DIFFERENTIAL Routine 10/27/2023 12:02 PM CDT Fatigue, unspecified type FERRITIN Routine 10/27/2023 12:02 PM CDT Fatigue, unspecified type CORTISOL TOTAL Routine 10/27/2023 12:02 PM CDT Fatigue, unspecified type PROLACTIN Routine 10/27/2023 12:02 PM CDT Fatigue, unspecified type TSH WITH REFLEX Routine 10/27/2023 12:02 PM CDT Fatigue, unspecified type HPV THIN PREP Routine 12/08/2021 5:00 PM CDT ANTI HIV 1/2 Routine 08/07/2007 1:16 PM CDT Deep Vein Embolism/Thrombosis , Unspec from Last 3 Months or Most Recently Relevant to Health Maintenance Results * CORTISOL TOTAL (10/27/2023 12:02 PM CDT) CORTISOL,TOTAL 4.9 ug/dL 10/27/2023 10:57 PM CDT [facility] Blood BLOOD SPECIMEN / Unknown Venipuncture / Unknown 10/27/2023 12:02 PM CDT 10/27/2023 12:02 PM CDT Narrative [facility] - 10/27/2023 10:57 PM CDT Cortisol ?Morning Hours ?6:00 ??AM - 10:00 AM ?(4.8-19.5 ug/dL) Cortisol ?Afternoon Hours ??4:00 ??PM - ??8:00 PM ?(2.5-11.9 ug/dL) ? Biotin supplements may cause clinically significant interference for this test assay. ??If interference is suspected, it is strongly recommended that biotin is discontinued for at least one week prior to retesting. Jennie Paul DO CHEMISTRY [facility] [address] [address], * (ABNORMAL) CBC WITH AUTO DIFFERENTIAL (10/27/2023 12:02 PM CDT) WHITE BLOOD COUNT 4.6 4.5 - 11.0 thou/cu mm 10/27/2023 12:06 PM CDT [facility] RED BLOOD COUNT 3.94(L) 4.00 - 5.20 mil/cu mm 10/27/2023 12:06 PM CDT [facility] HEMOGLOBIN 13.1 12.0 - 16.0 g/dL 10/27/2023 12:06 PM CDT [facility] HEMATOCRIT 37.8 33.0 - 51.0 % 10/27/2023 12:06 PM CDT [facility] MCV 96 80 - 100 fL 10/27/2023 12:06 PM CDT [facility] MCH 33.2 26.0 - 34.0 pg 10/27/2023 12:06 PM CDT [facility] MCHC 34.7 32.0 - 36.0 g/dL 10/27/2023 12:06 PM CDT [facility] RDW 12.6 11.5 - 15.5 % 10/27/2023 12:06 PM CDT [facility] PLATELET COUNT 220 140 - 440 thou/cu mm 10/27/2023 12:06 PM CDT [facility] MPV 10.0 6.5 - 11.0 fL 10/27/2023 12:06 PM CDT [facility] % NEUT 41.7 % 10/27/2023 12:06 PM CDT [facility] % LYMPH 48.9 % 10/27/2023 12:06 PM CDT [facility] % MONO 7.9 % 10/27/2023 12:06 PM CDT [facility] % EOS 1.1 % 10/27/2023 12:06 PM CDT [facility] % BASO 0.4 % 10/27/2023 12:06 PM CDT [facility] ABSOLUTE NEUTROPHILS 1.9 1.7 - 7.0 thou/cu mm 10/27/2023 12:06 PM CDT [facility] ABSOLUTE LYMPHOCYTES 2.2 0.9 - 2.9 thou/cu mm 10/27/2023 12:06 PM CDT [facility] ABSOLUTE MONOCYTES 0.4 <0.9 thou/cu mm 10/27/2023 12:06 PM CDT [facility] ABSOLUTE EOSINOPHILS 0.1 <0.5 thou/cu mm 10/27/2023 12:06 PM CDT [facility] ABSOLUTE BASOPHILS 0.0 <0.3 thou/cu mm 10/27/2023 12:06 PM CDT [facility] Blood BLOOD SPECIMEN / Unknown Venipuncture / Unknown 10/27/2023 12:02 PM CDT 10/27/2023 12:02 PM CDT Jennie Paul DO HEMATOLOGY Performing Organization Address City/[facility]/ZIP Co de Phone Number [facility] [address] [place] [address], [place] [phone] * TSH WITH REFLEX (10/27/2023 12:02 PM CDT) TSH 0.79 0.27 - 4.20 uIU/mL 10/27/2023 10:57 PM CDT [facility] Blood BLOOD SPECIMEN / Unknown Venipuncture / Unknown 10/27/2023 12:02 PM CDT 10/27/2023 12:02 PM CDT Narrative [facility] - 10/27/2023 10:57 PM CDT In Adults, TSH values between 5.00 and 10.00 uIU/ml do not necessarily indicate the presence of Hypothyroidism. Correlation with clinical findings such as presence of goiter and/or Thyroperoxidase (TPO) Antibody may be helpful. For more information please refer to JUDIT 2004; 291: 228-238. Jennie Paul DO CHEMISTRY Performing Organization Address City/[facility]/ZIP Co de Phone Number [facility] [address] [place] [address], [place] * TESTOSTERONE,TOTAL (10/27/2023 12:02 PM CDT) TESTOSTERONE,T OTAL 20.0 ng/dL 10/27/2023 11:35 PM CDT [facility] Blood BLOOD SPECIMEN / Unknown Venipuncture / Unknown 10/27/2023 12:02 PM CDT 10/27/2023 12:02 PM CDT Narrative [facility] - 10/27/2023 11:35 PM CDT ? TESTOSTERONE, TOTAL REFERENCE RANGES Age Range ? Female ?Male ?Units 20-50 years ? 8.4-48.1 ?249.0-836.0 ?? ng/dl 50-999 years ?2.9-40.8 ?193.0-740.0 ?? ng/dl Jennie Paul DO CHEMISTRY Performing Organization Address City/[facility]/ZIP Co de Phone Number [facility] [address] [place] [address], * PROLACTIN (10/27/2023 12:02 PM CDT) Pathologist [facility] PROLACTIN 12.70 4.79 - 23.30 ng/mL 10/27/2023 11:35 PM CDT [facility] Blood BLOOD SPECIMEN / Unknown Venipuncture / Unknown 10/27/2023 12:02 PM CDT 10/27/2023 12:02 PM CDT Jennie Paul DO SEND OUTS Performing Organization Address City/[facility]/ZIP Co de Phone Number [facility] [address] [place] [address], [place] * FERRITIN (10/27/2023 12:02 PM CDT) FERRITIN 34.7 15.0 - 150.0 ng/mL 10/27/2023 10:57 PM CDT [facility] Blood BLOOD SPECIMEN / Unknown Venipuncture / Unknown 10/27/2023 12:02 PM CDT 10/27/2023 12:02 PM CDT Jennie Paul DO CHEMISTRY [facility] [address] [place] [address], * HPV HIGH RISK (12/08/2021 5:00 PM CDT) TYPE 16 Negative Negative 12/11/2021 5:14 PM CDT [facility] TYPE 18 Negative Negative 12/11/2021 5:14 PM CDT [facility] OTHER HIGH RISK TYPES Negative Negative 12/11/2021 5:14 PM CDT [facility] Other (Cervical) 12/08/2021 5:00 PM CDT 12/10/2021 11:54 AM CDT Narrative [facility] - 12/11/2021 5:14 PM CDT HPV types 16, 18, 31, 33, 35, 39, 45, 51, 52, 56, 58, 59, 66 and 68 DNA were undetectable or below the pre-set threshold. Methodology: Denny Crystal 4800 HPV Test Vickie Epstein PA-C MICROBIOLOGY Performing Organization Address City/[facility]/ZIP Co de Phone Number [facility] [address] [place] [address], [place] * ANTI HIV 1/2 (08/07/2007 1:16 PM CDT) ANTI HIV 1/2 Non-reacti ve [facility] Blood specimen (specimen) BLOOD SPECIMEN / Unknown 08/07/2007 1:16 PM CDT 08/07/2007 1:04 PM CDT Jory Blake SEND OUTS [facility] INTERNAL ZIP [id number] [address] from Last 3 Months or Most Recently Relevant to Health Maintenance Advance Directives * Full Code (Latest Code Status on File) Date Activated Date Inactivated Comments 12/24/2022 2:37 AM 12/25/2022 1:01 AM Question Answer Comments Code Status Discussion: Reviewed Preferences * Full Code Date Activated Date Inactivated Comments 09/18/2013 2:24 PM 09/19/2013 11:39 PM * Full Code Date Activated Date Inactivated Comments 09/18/2013 6:03 AM 09/18/2013 2:24 PM * Full Code Date Activated Date Inactivated Comments 07/08/2011 11:38 PM 07/09/2011 12:20 PM Care Teams Wood Milling Machine Operator Relationship Specialty Start Date End Date Jennie [place] [address] PCP - General Family Practice 05/04/21
--- OUTSIDE RECORDS SUMMARY | 2024-01-18 20:29 | XMS_ITS | Clinical Summary ---
Author Organization [facility] Address [address] [place] [address] Care Team Providers Care Crystal Finisher Name Role Phone Unavailable Primary Care Provider Unavailabl e Source Comments You are receiving this document as you are listed as the primary care provider,follow-up provider, or the patient has been referred to you for consultation.This is in compliance with the Medicare and[facility] Hospital[facility] EHR Incentive Program,which states Providers who transition their patient to another setting of careor provider of care or refers their patient to another provider of care shouldprovide summary care record for each transition of care or referral. [facility] Allerg[facility] Active Allergy Reactions Criticality Noted Date Comments Codeine Breathing Difficulty,Palpitations, Respiratory Distress,Tachycardia,Unk nown High 10/31/2006 Ketorolac Anxiety 07/05/2021 Warfarin Breathing Difficulty,Palpitations, Other, see comments,Tachycardia,Unk nown 10/25/2007 Unknown reaction - 12 years ago Medications Medication Sig Dispensed Refills Start Date End Date Status Norelgestromin-Eth Estradiol (AKA ORTHO EVRA) 150-35 MCG/24HR patch Apply 1 Patch topically once a week. 9 3 07/07/2006 Active baclofen (LIORESAL) 5 MG tablet Take by mouth. Active lidocaine (LIDODERM) 5 % patch SMARTSIG:Topical 06/20/2023 Active pregabalin (LYRICA) 75 MG capsule Take 1 Capsule (75 mg) by mouth. Active senna (SENOKOT) 8.6 MG tablet Take 1 Tablet (8.6 mg) by mouth as needed. Active traMADol (ULTRAM) 50 MG tablet Take 1 Tablet (50 mg) by mouth every 8 hours as needed. 08/25/2023 Active valACYclovir (VALTREX) 500 MG tablet as needed. Active enoxaparin (LOVENOX) 150 MG/ML prefilled syringe Inject subcutaneously. Active pregabalin (LYRICA) 150 MG capsule Take by mouth daily. Active magic mouthwash (lido/maalox/diphen 1:1:1) Swish and spit in mouth two times a day. Swish and spit 5 mL. 240 mL 10/05/2023 Active ondansetron (ZOFRAN-ODT) 8 MG disintegrating tablet Take 1 Tablet (8 mg) by mouth every 8 hours as needed for Nausea. 15 Tablet 10/05/2023 Active enoxaparin (LOVENOX) 100 MG/ML prefilled syringe Inject 0.9 mL (90 mg) subcutaneously every 12 hours. 01/07/2023 Active Problems No known active problems Immunizations Name Administration Dates Next Due HepB Adult (Engerix-B, 20+ y rs, 3 dose series) 12/01/1999,07/01/1999,05/29/1999 MMR 12/20/1996 Td 12/20/1996 Varicella 12/20/1996 Social History Tobacco Use Types Packs/Day Years Used Date Smoking Tobacco: Never Smokeless Tobacco: Never Tobacco Cessation:Counseling Given: Not Answered Sex and Gender Information Value Date Recorded [...] - - Body Mass Index - - Plan of Treatment Health Maintenance Due Date Last Done Comments Cervical Cancer Screening Due 1984 Hep C Screening (Preventive Services) 1984 MTM Covered 1984 Adult Preventive Visit 2002 COVID-19 Vaccine (24 season) 2023 DTaP/Tdap/Td (3 - Tdap) 11/15/2023 11/14/2013, 12/20 Influenza (#1) 2024 04/21/2016, 07/2014, 03/06/2014, Additional history exists Zoster/Shingles (1 of 2) 2034 HepB Completed 12/01/1999, 06/16, 05/29/1999 HIV Screening (Preventive Services) Completed 08/07/2007 HPV Vaccine Aged Out No longer eligi ble based on patient's age to complete this topic HepA Aged Out No longer eligi ble based on patient's age to complete this topic Hib Aged Out No longer eligi ble based on patient's age to complete this topic IPV (Polio) Aged Out No longer eligi ble based on patient's age to complete this topic MCV4 Aged Out No longer eligi ble based on patient's age to complete this topic Pneumococcal Aged Out No longer eligi ble based on patient's age to complete this topic
--- OUTSIDE RECORDS SUMMARY | 2024-01-18 20:29 | XMS_ITS | Referral Summary ---
Author Organization [facility] Address [facility] [place] [address] Care Team Providers Care Turntable Man Name Role Phone Fabrizio Dalal OD Unavailable [phone] Allergies Active Allergy Reactions Criticality Noted Date Comments Codeine 11/26/2021 Warfarin 11/26/2021 Medications Medication Sig Dispensed Refills Start Date End Date Status pregabalin (LYRICA) 75 MG capsule Take 75 mg by mouth 3 times daily Active Social History Tobacco Use Types Packs/Day Years Used Date Smoking Tobacco: Never Assessed Adolescent Education Answer Date Record ed Getting School Help Needed Not on file 02/13 Sex and Gender Information Value Date Recorded Sex Assigned at Female 11/26/2021 7:32 AM CDT Gender Identity Female 11/26/2021 7:32 AM CDT Sexual Orientation Not on file Plan of Treatment Not on file Procedures Procedure Name Priority Date/Time Associated Diagnosis Comments BASIC METABOLIC PANEL Routine 01/09/2011 5:50 AM CDT from Last 3 Months or Most Recently Relevant to Health Maintenance Results * (ABNORMAL) Basic metabolic panel (01/09/2011 5:50 AM CDT) Sodium 137 133 - 144 mmol/L [facility] Potassium 4.0 3.4 - 5.3 mmol/L [facility] Chloride 110(H) 94 - 109 mmol/L [facility] Carbon Dioxide 21 20 - 32 mmol/L [facility] Anion Gap 5(L) 6 - 17 mmol/L [facility] Glucose 83 60 - 99 mg/dL [facility] Urea Nitrogen 4(L) 5 - 24 mg/dL [facility] Creatinine 0.50(L) 0.52 - 1.04 mg/dL [facility] GFR Estimate >90 >60 mL/min/1.7 m2 [facility] GFR Estimate If Black >90 >60 mL/min/1.7 m2 [facility] Calcium 8.1(L) 8.5 - 10.4 mg/dL [facility] 01/09/2011 5:50 AM CDT 01/09/2011 6:01 AM CDT Jose Luis Moreno MD LAB - BLOOD ORDERAB LES [facility] from Last 3 Months or Most Recently Relevant to Health Maintenance Care Teams Turntable Man Relationship Specialty Start Date End Date Fabrizio Dalal OD [address] [place] [address] [id number] Optometry 08/14/21
--- OUTSIDE RECORDS SUMMARY | 2024-01-18 20:29 | XMS_ITS | Clinical Summary ---
Author Organization [facility] Address [address] [place] [address] Care Team Providers Care Foreign Exchange Student Coordinator Name Role Phone Unknown, Primary Care Provider [...] 12/21/2022 11:52 AM CDT Plan of Treatment Health Maintenance Due Date Last Done Comments Hepatitis C Screening 1984 Pap Smear 1984 Anxiety Screening (MOLLY-2) 1985 Depression Assessment (PHQ-2) 1985 COVID-19 Vaccine (2022-2 4 season) 2023 Adult Tetanus Booster 11/15/2023 11/14/2013 , 12/20/1996 Influenza Vaccine (#1) 2024 5, 03/06/2014 Pneumococcal <65 Aged Out No longer e ligible based on patient's age to complete this topic Care Teams Foreign Exchange Student Coordinator Relationship Specialty Start Date End Date Unknown, NO ADDRESS/PHONE/FAX AFFILIATED PCP - General 12/21/22
--- OUTSIDE RECORDS SUMMARY | 2024-01-18 20:29 | XMS_ITS | Data Portability ---
Author Organization [id number] Address [address] [place] [id number] Assessment Encounter Date Assessment Date Assessment LastModified by Organization Details LastModified Time 01/01/2020 01/01/2020 >50% of the visit was spent in consultation or coordination of care. Total time spent was ____10 minutes. [email or web address] Not available 01/01/2020 17:42:45 Plan of Treatment Reminders Order Date Submit Date Provider Last Modified By Organization Details Last Modified Time Details Appointments None recorded. Lab None recorded. Referral None recorded. Procedures sperm washing for artificial inseminatio n (PROC) 2019 020 [email or web address] Not available 0 12:16:49 artificial inseminatio n, intrauterin e (PROC) 2019 020 [email or web address] Not available 0 12:16:49 Surgeries None recorded. Imaging None recorded. Medication Orders None recorded. Patient TargetsNo targets recorded. Patient Instructions Encounter Date Encounter Id Patient Instructions Last Modified By Organization Details Last Modified Time 01/01/2020 [id number] Letrozole 7.5mg on days 10-11 Ovidrel at 11:30pm on day 11 IUI in MW on 01/04/20 at 2:30/3:30pm Start Prometrium QHS on 01/05 Progesterone lab on 01/10 and B-HCG 01/17 All questions answered [email or web address] Not available 01/01/2020 17:40:29 01/04/2020 [id number] Back up IUI with TImed [place] Start Prometrium QHS on 01/06/20 Progesterone lab on 01/11/20 B-HCG lab on 01/18/20 All questions answered [email or web address] Not available 01/04/2020 18:09:04 Reason for Referral None Reported. Results Created Date Observation Date Name Description Value Unit Range Abnormal Flag Note LastModifiedBy Organization Detail LastModifiedTime 01/01/20 20 US, isaías s No observ ation record ed. [email or web address] [address], [place], [address], 08/12/2021 14:05:02 Result Notes None recorded. Procedures Surgical History Date Name Laterality Status Provider Name and Address Organization Details Recorded Time 01/04/20 Intrauterine insemination ([facility]) completed MERARY PINEDA PA-C [id number] [facility],[address], [place], [address], [facility] CHILD CARE COUNSELOR 01/04/2020 17:56:16 05/16/19 14 reversal of female sterilization completed Carolee Sarah TERM null, [facility] 01/02/2020 23:31:55 ligation of bilateral fallopian tubes completed Carolee Sarah TERM null, [facility] CHILD CARE COUNSELOR 01/02/2020 23:31:22 Imaging Results Imaging Date Name Status LastModified by Organiz ation Details LastModified Time 01/01/2020 US, pelvis completed [email or web address] [address], [place], [address], 08/12/2021 14:05:02 Procedure Notes None recorded. Medical Equipment None Reported. Allergies Allergen ID Allergen Name Allergen Category Reaction Reaction Severity Criticality Documentation Date Start Date Code Code System Note Provider Name and Address Organization Details Recorded Time 86530 codeine medicatio n Not available Not available Not available 12/20/2019 3780 RxNorm Not Available [facility] 0 05:13:41 Medications Name Sig Start Date Stop Date Status Note LastModified by Organization Details LastModified Time valacyclovir 500 mg tablet active Not Available Not Availabl e Not Available progesterone micronized 200 mg capsule active Not Available Not Available N ot Available letrozole 2.5 mg tablet active Not Available Not Available No t Available enoxaparin 80 mg/0.8 mL subcutaneous syringe active Not Available Not Available Not Available enoxaparin 120 mg/0.8 mL subcutaneous syringe active Not Available Not Available Not Available Vitals Date Recorded Body height Systolic blood pressure Provider Name and Address Organization Details Last Updated DateTime 01/01/2020 170.0784 cm 120 mm[Hg] Emerita Sheridanmohsen (TERMED) [facility]ILD CARE COUNSELOR 01/01/2020 09:38:12 Social History None recorded. Functional Status None recorded. Mental Status None recorded. Family History Relationship Description Onset Age of this Age Resolved Age Notes Mother Family history of stroke Family History of Stroke Medical History Condition Response Hematology- DVT/Pulmonary Embolism Y Gynecological History Statement/Question Response Date of LMP 12/23/2019 Obstetrics History GPAL:G 2 P 2 0 0 2 Type Value Multiple Births 0 Full Term 2 Induced 0 Spontaneous 0 Premature 0 Living 2 Ectopics 0 Total 2 Past Encounters Encounter ID Performer Location Encounter Start Date Encounter Closed Date Diagnosis/Indication Diagnosis SNOMED-CT Code Diagnosis ICD10 Code [id number] MERARY PINEDA PA-C [id number] [address] [id number] 01/01/2020 09:34:35 01/29/2020 20:47:58 Reproductive care management 500303814 Z31.9 [id number] SUSHILA FRANCOIS MD [id number] [address] [address] 01/01/2020 08:16:06 01/01/2020 09:32:43 [id number] MERARY PINEDA PA-C [id number] [facility] [place] [address] [place] [id number] 01/04/2020 16:16:30 01/04/2020 18:33:45 Reproductive care management 304139966 Z31.9 Health Concerns Section Related Observation LastModified by Organization Detai ls LastModified Time None Recorded Concern Status LastModified by Organization Details LastModified Time None Recorded Advance Directives Directive None Recorded Payers Encounter Date Sequence Insurance Name Policy Number Policy Thomason Covered Member ID Thomason Member ID Guarantor Name 01/01/2020 1 [facility] [id number] Aspen Peng [id number] Aspen Peng 01/01/2020 1 [facility] [id number] Aspen Peng [id number] Aspen Peng 01/04/2020 1 [facility] [id number] Aspen Peng [id number] Aspen Peng Notes Date Note Type Note Provider Name and Address Organization Details Recorded Time 01/01/2020 text/html HPI Notes: Cycle #: 2 Date of Cycle Day 1:____12/25/19____ _ Cycle Day: Cycle Medications: letrozole 5mg ____ ____ ____ Medication taken on: 07-22 Ultrasound findings: Endometrium: 8.8mm Left Ovarian Follicles: 17.4mm (cyst), size of follicles: Right Ovarian Follicles: 13.6mm, size of follicles: Fluid in Cul-de-sac: ____ Trigger Shot: ____ Insemination: ____ Estradiol Level: __ Semen Analysis: ____ Tubal Patency Study: ____ Lab Results: ____ Results of Cycle: MERARY PINEDA PA-C [id number] [facility],[address], [place], [address], [facility] 01/01/2020 17:42:56 OBGyn Episode No OBEpisode recorded.
--- OUTSIDE RECORDS SUMMARY | 2024-01-18 20:29 | XMS_ITS | Referral Summary ---
Author Organization [facility] Address [address] [place] [address] Care Team Providers Care Vice President Of Marketing Name Role Phone Elsewhere, Pcp Primary Care Provider Unavailabl e Source Comments Patient records contain information from all sites at [facility]. For routine questions regarding patient records, call [phone] during business hours, M-F 8:00 AM - 5:00 PM Central Time. Record requests for emergency care only can be directed to [phone] at any time.[facility] Allergies Active Allergy Reactions Criticality Noted Date [...] Comments Blood Pressure 118/83 07/07/2023 9:30 PM TEAM ASSEMBLER Pulse 67 07/07/2023 11:00 PM TEAM ASSEMBLER Temperature 36.6 ??C (97.9 ??F) 10/28/2022 4:20 PM CD T Respiratory Rate 18 10/28/2022 6:00 PM CDT Oxygen Saturation 98% 07/07/2023 11:00 PM TEAM ASSEMBLER Inhaled Oxygen Concentration - - Weight 97 kg (213 lb 13.5 oz) 07/07/2023 9:20 PM TEAM ASSEMBLER Height 170.2 cm (5' 7.01) 07/07/2023 9:20 PM CS T Body Mass Index 33.49 07/07/2023 9:20 PM TEAM ASSEMBLER Plan of Treatment Not on file Procedures Procedure Name Priority Date/Time Associated Diagnosis Comments LIPID PANEL, S Routine 11/22/2020 5:00 PM CDT from Last 3 Months or Most Recently Relevant to Health Maintenance Results * (ABNORMAL) Lipid Panel (11/22/2020 5:00 PM CDT) [facility] Cholesterol, Total 208(H) mg/dL 2020 5:37 PM [...] CDT Julian Harris M.D. LAB BLOOD ADD-ON [facility] [address] [place] [address], [facility] [place] [address] [place] [address] from Last 3 Months or Most Recently Relevant to Health Maintenance Advance Directives For more information, please contact: [phone] * Full Code (Latest Code Status on File) Date Activated Date Inactivated Comments 11/22/2020 3:40 PM 11/23/2020 1:54 AM Question Answer Comments Full Code: Discussed Care Teams Vice President Of Marketing Relationship Specialty Start Date End Date Elsewhere, Pcp PCP - General Family Medicine 10/23/20
--- OUTSIDE RECORDS SUMMARY | 2024-01-18 20:29 | XMS_ITS | Encounter Summary ---
[facility] Address [address], [place] [address] Care Team Providers Care Surgeon Assistant Name Role Phone Unavailable Primary Care Provider Unavailabl e Encounter Details Date Type Department Care Team ([facility] st Contact Info) Description 10/13/2023 1:40 PM CDT Lab Visit [facility] [address] [place] [address] Pharyngitis, unspecified etiology Social History Tobacco Use Types Packs/Day Years Used Date Smoking Tobacco: Never Smokeless Tobacco: Never Sex and Gender Information Value Date Recorded Sex Assigned at Not on file Gender Identity Not on file Sexual Orientation Not on file documented as of this encounter Plan of Treatment Not on file documented as of this encounter Procedures Procedure Name Priority Date/Time Associated Diagnosis Comments MONO TEST STAT 10/13/2023 1:36 PM CDT Pharyngitis, unspecified etiology documented in this encounter Results * [place] Test (10/13/2023 1:36 PM CDT) Mononucleosis Screen Negative Negative 10/13/2023 1:57 PM CDT [facility] Blood Venipuncture / Unknown 10/13/2023 1:36 PM CDT 10/13/2023 1:37 PM CDT Kika Adam MD LAB_1 [facility] [address] [place] [address] documented in this encounter Visit Diagnoses Diagnosis Pharyngitis, unspecified etiology documented in this encounter
== END 2024-01-18 20:24 | disposition home or self-care (01) ==
PROVIDERS: PCP Student in an Organized Health Care Education/Training Program; Visit Provider Nurse Practitioner
DX: G47.33 Obstructive sleep apnea (adult) (pediatric) (principal); G47.10 Hypersomnia, unspecified
CPT/HCPCS: 95810